=== PATIENT | male | born 1980 | race Hispanic/Latino ===

== ENCOUNTER 2023-11-26 10:34 | Emergency (ER) | payer SELFPAY ==
[2023-11-26] MEDS ORDERED: diphenhydrAMINE 25 MG CAP ONE (11:23)
[2023-11-26] MEDS ORDERED: Famotidine 20 MG TAB ONE (11:23)
[2023-11-26] MEDS ORDERED: methylPREDNISolone Sod Succ/PF 125 MG/2 ML VIAL ONE (11:24)
== END 2023-11-26 11:37 | disposition home or self-care (01) ==
LOC: MADERS 10:34
DX: L25.9 Unspecified contact dermatitis, unspecified cause (principal)
CPT/HCPCS: 96372; 99282; J2930